=== PATIENT | female | born 1945 | race Caucasian/White ===

== ENCOUNTER 2019-06-07 06:10 | Day surgery (SDC) | payer OTHER ==
[~2019-06-07 06:10] MED LIST: AVAPRO300 MG PO; BISOPROLOL FUMA10 MG PO; CRESTOR20 MG PO; CYMBALTA60 MG PO; DIOVAN HCT 3201 EACH PO; GLUCOTROL XL5 MG PO; INTEGRA PLUS C1 EACH PO; LASIX20 MG PO; NORVASC5 MG PO; OXYC1TAB9 PO; XARELTO10 MG PO; [UNRECOGNIZED DRUG - OTHER] PO
[2019-06-07] MEDS ORDERED: BACTRIM DS TAB1 EACH PO (10:56)
[2019-06-07] MEDS ORDERED: OXYC1TAB9 PO (10:56)
== END 2019-06-07 13:00 | disposition home or self-care (01) ==
LOC: CIR.AMB 06:10
DX: S43.432A Superior glenoid labrum lesion of left shoulder, initial encounter (principal); M65.812 Other synovitis and tenosynovitis, left shoulder